=== PATIENT | male | born 1985 | race Two or more races ===

== ENCOUNTER 2021-05-31 00:12 | Emergency (ER) | payer OTHER ==
[~2021-05-31] VITALS: Ht 180.3 cm; Wt 81.6 kg
[2021-05-31 00:12] VITALS: BP 127/71
[2021-05-31] MEDS ORDERED: OXYC-117 PO (00:41)
[2021-05-31] MEDS ORDERED: CEPH500C2 PO (00:41)
[2021-05-31] MEDS ORDERED: CEPHALEXIN MONOHYDRATE 500 MG CAPSULE PO ONE ×2 (00:42→01:00)
[2021-05-31] MEDS ORDERED: HYDROCODONE/APAP 5/325MG TABLET ONE (00:42)
[2021-05-31] MEDS ORDERED: HYDROCODONE/APAP 5/325MG TABLET PO ONE (01:00)
== END 2021-05-31 01:03 | disposition home or self-care (01) ==
LOC: ER 00:16
DX: T23.222A Burn of second degree of single left finger (nail) except thumb, initial encounter (principal); X08.8XXA Exposure to other specified smoke, fire and flames, initial encounter; Y93.89 Activity, other specified; Y92.89 Other specified places as the place of occurrence of the external cause; Y99.8 Other external cause status